=== PATIENT | female | born 1980 | race Asian ===

== ENCOUNTER 2016-12-16 17:32 | Emergency (ER) | payer OTHER, BC ==
[2016-12-16 17:40] VITALS: BP 125/82; PULSE 62; TEMP 99; BMI 31.8
[2016-12-16] MEDS ORDERED: IBUPROFEN 600 MG TABLET (FP) PO ONE ×2 (18:14→18:19)
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
== END 2016-12-16 18:31 | disposition home or self-care (01) ==
LOC: JERFT 17:32
DX: S13.4XXA Sprain of ligaments of cervical spine, initial encounter (principal); V43.52XA Car driver injured in collision with other type car in traffic accident, initial encounter; Y93.89 Activity, other specified; Y92.410 Unspecified street and highway as the place of occurrence of the external cause
CPT/HCPCS: 99281-25